=== PATIENT | female | born 1955 | race Caucasian/White ===

== ENCOUNTER 2019-04-02 12:06 | Observation (INO) ==
[2019-04-02] MEDS ORDERED: Ondansetron 4 MG/2 ML VIAL IVP ONE (12:37)
[2019-04-02] MEDS ORDERED: Aspirin 81 MG TAB.CHEW PO ONE (12:37)
[2019-04-02 13:14] LABS: Basophils # 0.1 K/mcL (0.0-0.2); Basophils % 0.7 %; Eosinophils # 0.2 K/mcL (0.0-0.6); Eosinophils % 2.8 %; Hematocrit 39.9 % (35.3-44.9); Hemoglobin 13.1 g/dL (11.5-15.4); Immature Granulocytes % 0.3 % (0-4); Lymphocytes # 2.7 K/mcL (0.6-4.6); Lymphocytes % 36.5 %; Mean Corpuscular HGB Conc 32.8 g/dL (31.6-35.5); Mean Corpuscular Hemoglobin 30.3 pg (28.0-33.3); Mean Corpuscular Volume 92.1 fL (83.0-100.0); Mean Platelet Volume 10.1 fL (9.4-12.4); Monocytes # 0.5 K/mcL (0.0-1.3); Monocytes % 6.8 %; Platelet Count 307 K/mcL (140-400); Red Blood Count 4.33 M/mcL (3.82-4.97); Red Cell Distribution Width 12.5 % (11.5-14.5); Segmented Neutrophils % 52.9 %; White Blood Count 7.5 K/mcL (4.3-11.1)
[2019-04-02 13:33] LABS: Platelet Estimate Normal (Normal); Reactive Lymphocytes Present (Not Present)
[2019-04-02 13:36] LABS: BUN/Creatinine Ratio 20 (6-26); Blood Urea Nitrogen 17 mg/dL (8-23); Calcium 9.4 mg/dL (8.6-10.3); Carbon Dioxide 28 mEq/L (23-29); Chloride 104 mEq/L (98-107); Glucose 101 mg/dL (70-105); Osmolality,Calculated 290 (280-300); Potassium 4.1 mEq/L (3.5-5.1); Sodium 139 mEq/L (136-145); Troponin I < 0.03 ng/mL (< 0.04); eGFR For African Americans > 60 (> 60); eGFR For Non-African Americans > 60 (> 60)
[2019-04-02 14:29] LABS: INR 1.1
[2019-04-02] MEDS: Latanoprost 2.5 ML BOTTLE BOTH EYES SCH ×2 (20:43→22:30)
[2019-04-02] MEDS ORDERED: Dorzolamide/Timolol 1 DROP OP SCH (21:00)
[2019-04-02] MEDS ORDERED: PARoxetine 20 MG TABLET PO SCH (21:04)
[2019-04-02] MEDS ORDERED: Acetaminophen 325 MG TABLET PO PRN (21:13)
[2019-04-03 04:21] VITALS: BP 112/69
[2019-04-03] MEDS: Dorzolamide/Timolol 1 DROP OP SCH ×2 (08:35→08:36)
[2019-04-03] MEDS ORDERED: PARoxetine 20 MG TABLET PO SCH ×2 (09:00→21:00)
[2019-04-03] MEDS ORDERED: Latanoprost 2.5 ML BOTTLE BOTH EYES SCH (18:00)
== END 2019-04-03 11:54 | disposition home or self-care (01) ==
LOC: 3BNU 12:06 → EMEROOARM 12:06 → SUATTDRO 14:57 → 3BNU 15:28
PROVIDERS: ADMIT Internal Medicine; ATTEND Internal Medicine